=== PATIENT | female | born 1965 | race Two or more races ===

== ENCOUNTER 2025-08-20 09:50 | Inpatient (IN) | payer OTHER ==
[~2025-08-20] VITALS: Ht 154.9 cm; Wt 77.1 kg
[2025-08-20] MEDS: IV NS 0.9% 500 ML BAG IV ONE (10:30)
[2025-08-20 10:39] LABS: PLATELET COUNT (AUTO) 58 K/uL (150-450); RED BLOOD CELL COUNT(AUTO) 4.59 MIL/uL (4.0-5.2); RED CELL DISTRIBUTION WIDTH 14.0 % (11.5-15.0); WHITE BLOOD COUNT (AUTO) 3.9 K/uL (4.3-11.0)
[2025-08-20 10:47] LABS: CALCIUM, SERUM 8.8 mg/dL (8.5-10.1); CREATININE 0.8 mg/dL (0.6-1.3); SODIUM SERUM 141.0 mmol/L (136-145); UREA NITROGEN, BLOOD 14.0 mg/dL (7-18)
[2025-08-20 10:52] LABS: ASPARTATE AMINOTRANSFERASE 41.0 U/L (15-37); INR 1.53 (0.91-1.10); TOTAL PROTEIN, SERUM 9.1 g/dL (6.4-8.2)
[2025-08-20 12:52] LABS: EOSINOPHILS % (MANUAL) 2 % (0-4); LYMPHOCYTES % (MANUAL) 29 % (16-48); MONOCYTES % (MANUAL) 8 % (0-11.0); NEUTROPHILS % (MANUAL) 61 (42-76); PLATELET ESTIMATE DECREASED
[2025-08-20 16:00] VITALS: BP 122/77; TEMP 98.1; O2SAT 96
[2025-08-20] MEDS ORDERED: MAG HYDROX/AL HYDROX/SIMETH 30 ML UDC PO PRN (16:30)
[2025-08-20] MEDS: PANTOPRAZOLE 40 MG TABLET.DR PO SCH (16:30)
[2025-08-20] MEDS ORDERED: ONDANSETRON HCL/PF 4 MG/2 ML VIAL IVP PRN (16:30)
[2025-08-20] MEDS: PANTOPRAZOLE 40 MG/PACK PACK GT SCH (17:02)
[2025-08-20 22:00] VITALS: BP 122/77; TEMP 98.1; O2SAT 96
[2025-08-21] VITALS: BP 122/77; TEMP 208.6; TEMP 98.1; O2SAT 96
[2025-08-21 02:00] VITALS: BP 122/77; TEMP 208.6; O2SAT 96
[2025-08-21 06:00] VITALS: BP 122/77; TEMP 208.6; O2SAT 96
[2025-08-21 07:02] LABS: PLATELET COUNT (AUTO) 61 K/uL (150-450); RED BLOOD CELL COUNT(AUTO) 4.62 MIL/uL (4.0-5.2); RED CELL DISTRIBUTION WIDTH 13.7 % (11.5-15.0); WHITE BLOOD COUNT (AUTO) 4.5 K/uL (4.3-11.0)
[2025-08-21 07:19] LABS: CALCIUM, SERUM 8.6 mg/dL (8.5-10.1); CREATININE 0.8 mg/dL (0.6-1.3); PHOSPHORUS 3.3 mg/dL (2.5-4.9); SODIUM SERUM 143.0 mmol/L (136-145); UREA NITROGEN, BLOOD 15.0 mg/dL (7-18)
[2025-08-21 08:00] VITALS: BP 137/65; TEMP 97; O2SAT 93
[2025-08-21 11:57] LABS: LYMPHOCYTES % (MANUAL) 18 % (16-48); MONOCYTES % (MANUAL) 4 % (0-11.0); NEUTROPHILS % (MANUAL) 78 (42-76); PLATELET ESTIMATE DECREASED
[2025-08-21 16:00] VITALS: BP 133/71; TEMP 99.5; O2SAT 99
[2025-08-21] MEDS ORDERED: LORA-259 GT ×2 (16:20)
[2025-08-21] MEDS ORDERED: LEVE1000 GT (16:20)
[2025-08-21] MEDS ORDERED: LACO200T2 GT (16:20)
[2025-08-21] MEDS: LORAZEPAM INJ 2 MG/ML VIAL IV PRN (16:41)
[2025-08-21] MEDS ORDERED: LORAZEPAM 1 MG TABLET GT PRN (17:00)
[2025-08-21] MEDS: LEVETIRACETAM SOL (5 ML) 100 MG/ML UDC GT SCH (17:13)
[2025-08-21] MEDS: LACOSAMIDE ORAL SOLN 50 MG/5 ML UDC GT SCH (17:13)
[2025-08-21] MEDS: RIFAXIMIN 550 MG TABLET GT SCH (17:55)
[2025-08-21 17:57] LABS: ABG BASE EXCESS -5.8 mmol/L (-2.0-3.0); ABG OXYGEN SATURATION 98.0 % (94.0-98.0); ABG PCO2 31.7 mmHg (32.0-45.0); ABG PH 7.378 (7.350-7.450); ABG PO2 108.2 mmHg (83.0-108.0); ABG TOTAL HEMOGLOBIN 13.7 G/dL (12.0-16.0); FLOW, BLOOD GAS 5.00 L/min (0.00-30.00); FRACTIONATED INSPIRED OXYGEN 40.0 %; SITE, ABG RIGHT RADIAL
[2025-08-21 20:00] VITALS: BP 129/91; TEMP 98; O2SAT 98
[2025-08-21] MEDS: PROPRANOLOL HCL 10 MG TABLET GT SCH (21:13)
[2025-08-21] MEDS: LORAZEPAM 1 MG TABLET GT SCH (21:13)
[2025-08-22] VITALS: BP 129/91; TEMP 98; O2SAT 100
[2025-08-22 04:00] VITALS: BP 122/84; TEMP 98.1; O2SAT 100
[2025-08-22] MEDS: GLUCERNA 1.2 1,000 ML BOTTLE PEG SCH (04:31)
[2025-08-22 08:00] VITALS: BP 133/69; TEMP 98.2; O2SAT 99
[2025-08-22 12:00] VITALS: BP 113/61; TEMP 98.4; O2SAT 98
[2025-08-22 16:00] VITALS: BP 111/63; TEMP 97.8; O2SAT 99
[2025-08-22 20:00] VITALS: BP 103/80; TEMP 99.1; O2SAT 99
[2025-08-23] VITALS: BP 143/76; TEMP 99; O2SAT 99
[2025-08-23 04:00] VITALS: BP 152/76; TEMP 99; O2SAT 99
[2025-08-23 07:29] LABS: PLATELET COUNT (AUTO) 63 K/uL (150-450); RED BLOOD CELL COUNT(AUTO) 4.36 MIL/uL (4.0-5.2); RED CELL DISTRIBUTION WIDTH 13.8 % (11.5-15.0); WHITE BLOOD COUNT (AUTO) 6.7 K/uL (4.3-11.0)
[2025-08-23 07:55] LABS: CALCIUM, SERUM 8.7 mg/dL (8.5-10.1); CREATININE 0.8 mg/dL (0.6-1.3); PHOSPHORUS 2.9 mg/dL (2.5-4.9); SODIUM SERUM 141.0 mmol/L (136-145); UREA NITROGEN, BLOOD 16.0 mg/dL (7-18)
[2025-08-23 08:00] VITALS: BP 144/86; TEMP 97.8; O2SAT 99
[2025-08-23 08:55] LABS: EOSINOPHILS % (MANUAL) 1 % (0-4); LYMPHOCYTES % (MANUAL) 21 % (16-48); MONOCYTES % (MANUAL) 8 % (0-11.0); NEUTROPHILS % (MANUAL) 70 (42-76); PLATELET ESTIMATE DECREASED
[2025-08-23 12:00] VITALS: BP 136/70; TEMP 97.6; O2SAT 99
[2025-08-23 16:00] VITALS: BP 140/86; TEMP 98.8; O2SAT 99
[2025-08-23 20:00] VITALS: BP 141/87; TEMP 99.5; O2SAT 98
[2025-08-23] MEDS: ACETAMINOPHEN 325 MG TABLET PO PRN (21:14)
[2025-08-24] VITALS: BP 140/69; TEMP 99; O2SAT 97
[2025-08-24 04:00] VITALS: BP 136/59; TEMP 98.2; O2SAT 99
[2025-08-24 08:00] VITALS: BP 115/72; TEMP 97.5; O2SAT 98
[2025-08-24 12:00] VITALS: BP 123/64; TEMP 97.7; O2SAT 98
== END 2025-08-24 13:25 | DRG 468 ==
LOC: ER 10:08 → MEDSG1 14:20 → TELE1 08-21 19:47
PROVIDERS: ADMIT Nurse Practitioner Acute Care; ATTEND Nurse Practitioner Acute Care
DX: N31.9 Neuromuscular dysfunction of bladder, unspecified (principal); R53.2 Functional quadriplegia; E44.0 Moderate protein-calorie malnutrition; K74.60 Unspecified cirrhosis of liver; K76.6 Portal hypertension; D68.59 Other primary thrombophilia; E88.09 Other disorders of plasma-protein metabolism, not elsewhere classified; R31.9 Hematuria, unspecified; G40.909 Epilepsy, unspecified, not intractable, without status epilepticus; Z87.19 Personal history of other diseases of the digestive system; E11.51 Type 2 diabetes mellitus with diabetic peripheral angiopathy without gangrene; I10 Essential (primary) hypertension; L98.9 Disorder of the skin and subcutaneous tissue, unspecified; S30.811A Abrasion of abdominal wall, initial encounter; X58.XXXA Exposure to other specified factors, initial encounter; Y92.9 Unspecified place or not applicable; F41.9 Anxiety disorder, unspecified; L92.9 Granulomatous disorder of the skin and subcutaneous tissue, unspecified; D64.9 Anemia, unspecified; Z79.899 Other long term (current) drug therapy; Z86.61 Personal history of infections of the central nervous system
CPT/HCPCS: 36415; 36600; 71045-TC; 80048-TC; 80076-TC; 82803-TC; 83735-TC; 84100-TC; 85027-TC; 85730-TC; 86850-TC; 87081-TC; G0378; J1953; J2060; J7040